=== PATIENT | male | born 1950 | race Caucasian/White ===

== ENCOUNTER → 2016-05-21 | Outpatient (CLI) | payer OTHER | LOC: BHLMT 15:15 | PROVIDERS: ATTEND Internal Medicine Interventional Cardiology | DX: I48.92 Unspecified atrial flutter (principal); I25.10 Atherosclerotic heart disease of native coronary artery without angina pectoris | CPT/HCPCS: 93005-PO ==

== ENCOUNTER → 2016-07-02 | Outpatient (CLI) | payer OTHER | LOC: BHLMT 15:30 | PROVIDERS: ATTEND Internal Medicine Interventional Cardiology | DX: I25.10 Atherosclerotic heart disease of native coronary artery without angina pectoris (principal); I48.92 Unspecified atrial flutter; E78.2 Mixed hyperlipidemia; R00.0 Tachycardia, unspecified | CPT/HCPCS: 93005-PO ==

== ENCOUNTER → 2016-07-24 | Outpatient (CLI) | payer OTHER | LOC: BHLMT 08:30 | PROVIDERS: ATTEND Internal Medicine Interventional Cardiology | DX: I48.92 Unspecified atrial flutter (principal); I25.10 Atherosclerotic heart disease of native coronary artery without angina pectoris | CPT/HCPCS: 93225-PO; 93226-PO; 93306-PO ==

== ENCOUNTER → 2016-11-05 | Outpatient (CLI) | payer OTHER | LOC: BHLMT 09:00 | PROVIDERS: ATTEND Internal Medicine Interventional Cardiology | DX: I25.10 Atherosclerotic heart disease of native coronary artery without angina pectoris (principal); I48.92 Unspecified atrial flutter; I49.3 Ventricular premature depolarization; E78.1 Pure hyperglyceridemia ==

== ENCOUNTER → 2017-05-21 | Outpatient (CLI) | payer OTHER | LOC: BHLMT 16:00 | PROVIDERS: ATTEND Thoracic Surgery (Cardiothoracic Vascular Surgery) | DX: I48.91 Unspecified atrial fibrillation (principal) | CPT/HCPCS: 93225-PO; 93226-PO ==